=== PATIENT | male | born 1985 | race Caucasian/White ===

== ENCOUNTER 2018-03-19 17:07 | Emergency (ER) | payer MEDICAID ==
[~2018-03-19] VITALS: Ht 180.3 cm; Wt 115.7 kg
[2018-03-19 17:19] VITALS: Ht 180.3 cm; Wt 115.7 kg
[2018-03-19 17:51] VITALS: BP 158/90
== END 2018-03-19 17:51 | disposition home or self-care (01) ==
LOC: ED 17:07
DX: K02.9 Dental caries, unspecified (principal)
CPT/HCPCS: J1885